=== PATIENT | female | born 1965 | race Caucasian/White ===

== ENCOUNTER 2017-06-05 10:36 | Emergency (ER) | payer OTHER ==
[~2017-06-05] VITALS: Ht 167.6 cm; Wt 87.5 kg
[~2017-06-05 10:36] MED LIST: AMLO5TAB22 PO; RIVA15 PO; Z.0.BCPILL PO
[2017-06-05 11:29] VITALS: BP 179/98; PULSE 81; RESP 18; TEMP 98.4; O2SAT 99
[2017-06-05] MEDS ORDERED: BENA5TAB PO (11:37)
[2017-06-05] MEDS ORDERED: AMLO5TAB2 PO (11:37)
[2017-06-05] MEDS ORDERED: PRED20 PO (12:40)
[2017-06-05] MEDS ORDERED: FLUO0.013 TOPICAL (12:40)
--- NOTE | 2017-06-05 12:42 | PD ---
HPI . Rash Chief Complaint: Skin Problem Time Seen by Provider: 12:06 Travel History International Travel<30 days: No Contact w/Intl Traveler<30days: No Traveled to known affect area: No History of Present Illness HPI 52-year-old female presents emergency department for evaluation of a macular papular rash that started on the anterior aspect of her neck, left eyelid and right forearm last Sunday. The rash is extremely itchy but not painful. Patient denies any fevers, chills, chest pain, shortness breath, malaise. The patient has no major medical history and doesn't take any daily medication. The patient denies any blurred vision or difficulty seeing or moving her eyes with the rash on her left eyelid. PFSH Past Medical History Hx Anticoagulant Therapy: Yes (XERALTO) Deep Vein Thrombosis: Yes (RIGHT LEG) Hypertension: Yes Immunizations Current: Yes ?: Not Past Surgical History Surgical History: No Previous Surgery Social History Alcohol Use: Yes (soccially) Tobacco Use: No Substance Use: No Allergies-Medications (Allergen,Severity, Reaction): Coded Allergies: No Known Allergies (Unverified , 07/18/15) Reported Meds & Prescriptions Reported Meds & Active Scripts Active Fluocinolone Topical (Fluocinolone Acetonide) 0.01% Cream 1 Applic TOPICAL DAILY 5 Days Prednisone 20 Mg Tab 40 Mg PO DAILY 3 Days Take 40 mg (2 tablets) daily for 5 days Reported Benazepril (Benazepril HCl) 5 Mg Tab 5 Mg PO DAILY Amlodipine (Amlodipine Besylate) 5 Mg Tab 5 Mg PO DAILY Review of Systems Except as stated in HPI: all other systems reviewed are Neg Physical Exam Narrative GENERAL: Well-nourished, well-developed pleasant 52-year-old female patient in no acute distress. Nontoxic appearing. SKIN: Macular papular rash on the anterior aspect of the neck, left eyelid and right forearm. No erythema, purulent drainage or vesicles noted. HEAD: Normocephalic. Atraumatic. EYES: PERRLA demonstrated bilaterally. No scleral icterus. No injection or drainage. NECK: Supple, trachea midline. No JVD or lymphadenopathy. CARDIOVASCULAR: Regular rate and rhythm without murmurs, gallops, or rubs. RESPIRATORY: Breath sounds equal bilaterally. No accessory muscle use. GASTROINTESTINAL: Abdomen soft, non-tender, nondistended. MUSCULOSKELETAL: No cyanosis, or edema. BACK: Nontender without obvious deformity. No CVA tenderness. Data Data Last Documented VS Vital Signs Date Time Temp Pulse Resp B/P (MAP) Pulse Ox O2 Delivery O2 Flow Rate FiO2 06/05/17 11:29 98.4 81 18 179/98 (125) 99 Orders Orders Ed Discharge Order (06/05/17 12:42) MDM Medical Decision Making Medical Screen Exam Complete: Yes Emergency Medical Condition: Yes Differential Diagnosis Differential diagnoses include but not limited to contact dermatitis, psoriasis , scabies, atopic dermatitis Narrative Course 52-year-old female presents to the emergency department for evaluation of a maculopapular rash that started last Sunday on the anterior aspect of her neck , left eyelid and right forearm. Patient denies any systemic symptoms such as fever, chills, malaise, abdominal pain, nausea, vomiting or lightheadedness. Patient describes the rash as incredibly itchy but not painful. Patient denies any major medical history. Patient denies any change of lotions, soaps, detergents. Patient will be given a short dose steroid by mouth and topical steroid cream to treat the rash. The by mouth steroid is primarily due to the left eyelid rash. Patient denies any blurred vision or difficulty seeing. Extraocular motions intact. PERRLA demonstrated bilaterally. Patient is thankful for care and understands the plan of care. Patient understands reasons to come back to the emergency room and will be on the lookout for secondary rash due to itching. Patient instructed to take Benadryl at night to help with itching and use cold compresses to help with itching. Patient discharged home with prescriptions. Diagnosis Primary Impression: Acute dermatitis Referrals: Pain Medicine Physician Primary Care Physician Patient Instructions: Dermatitis (ED), General Instructions Additional Instructions: Please return to emergency department if your symptoms return or worsen. Follow up with your primary care provider and/or health information clerk. Take medications as prescribed. Use Benadryl at night to help with itching. May use cold compresses to help with itching Med/Other Pt SpecificInfo: Prescription(s) given Scripts Fluocinolone Topical (Fluocinolone Topical) 0.01% Cream 1 APPLIC TOPICAL DAILY for 5 Days, #15 GM 0 Refills Prov: Regina Sanabria 06/05/17 Prednisone (Prednisone) 20 Mg Tab 40 MG PO DAILY for 3 Days, #6 TAB 0 Refills Take 40 mg (2 tablets) daily for 5 days Prov: Regina Sanabria 06/05/17 Disposition: 01 DISCHARGE HOME Condition: Stable Regina Sanabria Jun 05, 2017 12:42
== END 2017-06-05 12:50 | disposition home or self-care (01) ==
LOC: PHEFT 10:36
DX: L30.9 Dermatitis, unspecified (principal)
CPT/HCPCS: 99283

== ENCOUNTER 2017-07-05 12:31 | Emergency (ER) | payer OTHER ==
[~2017-07-05] VITALS: Ht 167.6 cm; Wt 87.7 kg
[~2017-07-05 12:31] MED LIST changes: +AMLO5TAB2 PO; -AMLO5TAB22 PO; +BENA5TAB PO; +FLUO0.013 TOPICAL; +PRED20 PO; -RIVA15 PO; -Z.0.BCPILL PO
[2017-07-05 12:36] VITALS: BP_SYST 227; BP_SYST 230; BP_DIAS 109; BP_DIAS 115; PULSE 104; RESP 16; TEMP 97.7; O2SAT 100
--- NOTE | 2017-07-05 13:02 | PD ---
HPI Chief Complaint: Square Cutter Problem/Complaint Time Seen by Provider: 12:44 Travel History International Travel<30 days: No Contact w/Intl Traveler<30days: No Traveled to known affect area: No History of Present Illness HPI PATIENT COMPLAINTS OF RASH TO BREAST FOLDS, UNDER HER BREAST, TO HER GROIN AREA THAT IS ITCHY. HAS A PCP BUT HAS NOT SEEN HER ABOUT THIS ISSUE DESPITE THE FACT THAT IT HAS BEEN GOING ON AND OFF FOR ABOUT A MONTH. PCP DR THURMAN [facility] Past Medical History Hx Anticoagulant Therapy: Yes (XERALTO) Cardiovascular Problems: Yes (htn on meds but didnt take b/p meds today at night) Deep Vein Thrombosis: Yes (RIGHT LEG) Hypertension: Yes Immunizations Current: Yes ?: Not LMP: menapause Social History Alcohol Use: Yes (soccially) Tobacco Use: No Substance Use: No Allergies-Medications (Allergen,Severity, Reaction): Coded Allergies: No Known Allergies (Unverified Adverse Reaction, Unknown, 07/05/17) Reported Meds & Prescriptions Reported Meds & Active Scripts Active Reported Benazepril (Benazepril HCl) 5 Mg Tab 5 Mg PO DAILY Amlodipine (Amlodipine Besylate) 5 Mg Tab 5 Mg PO DAILY Review of Systems Except as stated in HPI: all other systems reviewed are Neg General / Constitutional: No: Fever Eyes: No: Visual changes HENT: No: Headaches Cardiovascular: No: Chest Pain or Discomfort Respiratory: No: Shortness of Breath Gastrointestinal: No: Abdominal Pain Genitourinary: No: Dysuria Musculoskeletal: No: Pain Skin: Positive Rash, Positive Itching Neurologic: No: Weakness Psychiatric: No: Depression Endocrine: No: Polydipsia Hematologic/Lymphatic: No: Easy Bruising Physical Exam Narrative GENERAL: SKIN: Warm and dry....MACULAR RASH AT ANTECUBITAL FOLDS, UNDER BREAST FOLDS, TO HER EXTERNAL FOLDS OF VULVA, NOTED EXCORIATIONS, NO CELLULITIC CHANGES. HEAD: Atraumatic. Normocephalic. EYES: Pupils equal and round. No scleral icterus. No injection or drainage. ENT: No nasal bleeding or discharge. Mucous membranes pink and moist. NECK: Trachea midline. No JVD. CARDIOVASCULAR: Regular rate and rhythm. RESPIRATORY: No accessory muscle use. Clear to auscultation. Breath sounds equal bilaterally. GASTROINTESTINAL: Abdomen soft, non-tender, nondistended. Hepatic and splenic margins not palpable. MUSCULOSKELETAL: Extremities without clubbing, cyanosis, or edema. No obvious deformities. NEUROLOGICAL: Awake and alert. No obvious cranial nerve deficits. Motor grossly within normal limits. Five out of 5 muscle strength in the arms and legs. Normal speech. PSYCHIATRIC: Appropriate mood and affect; insight and judgment normal. Data Data Last Documented VS Vital Signs Date Time Temp Pulse Resp B/P (MAP) Pulse Ox O2 Delivery O2 Flow Rate FiO2 07/05/17 12:36 97.7 104 16 230/115 (153) 100 227/109 (148) Orders Orders Diphenhydramine Inj (Benadryl Inj) (07/05/17 13:15) Fluconazole (Diflucan) (07/05/17 13:15) Famotidine (Pepcid) (07/05/17 13:15) MDM Medical Decision Making Medical Screen Exam Complete: Yes Emergency Medical Condition: Yes Medical Record Reviewed: Yes Differential Diagnosis ATOPIC DERMATITIS V PSORIASIS V FUNGAL INFECTION V CELLULITIS V LYMPHANGITIS Narrative Course AFTER EVALUATION NOTED TO HAVE YEAST INFECTION OF SKIN Diagnosis Primary Impression: CANDIDIASIS Patient Instructions: General Instructions, Skin Yeast Infection (ED) Additional Instructions: PLEASE SEE DR THURMAN FOR REFERRAL TO [facility] SPECIALLY IF THIS TREATMENT DOES NOT HELP YOU. Scripts Nystatin-Triamcinolone (Nystatin-Triamcinolone) 100,000-0.1 Unit/Gm Cream 1 APPLIC TOPICAL BID for Infection, #60 GM 2 Refills Prov: Ulises Bhakta MD 07/05/17 Disposition: 01 DISCHARGE HOME Condition: Stable Ulises Bhakta MD Jul 05, 2017 13:02
[2017-07-05] MEDS ORDERED: NYSTCRE29 TOPICAL (13:05)
[2017-07-05 13:15] VITALS: BP 214/126
[2017-07-05] MEDS ORDERED: FLUCONAZOLE 100 MG TAB PO ONE (13:15)
[2017-07-05] MEDS ORDERED: FAMOTIDINE 20 MG TAB PO ONE (13:15)
[2017-07-05] MEDS ORDERED: diphenhydrAMINE HCL 50 MG/ML VIAL IM ONE (13:15)
[2017-07-05] MEDS ORDERED: cloNIDine HCL 0.1 MG TAB PO ONE (13:30)
[2017-07-05 13:49] VITALS: BP 185/97
== END 2017-07-05 13:51 | disposition home or self-care (01) ==
LOC: PHED 12:31
DX: B37.9 Candidiasis, unspecified (principal)
CPT/HCPCS: 96372; 99284; J1200

== ENCOUNTER 2017-11-04 12:54 | Emergency (ER) | payer OTHER ==
[~2017-11-04] VITALS: Ht 167.6 cm; Wt 82.0 kg
[~2017-11-04 12:54] MED LIST changes: -FLUO0.013 TOPICAL; +NYSTCRE29 TOPICAL; -PRED20 PO
[2017-11-04 13:00] VITALS: BP 143/84; PULSE 84; RESP 16; TEMP 98.1; O2SAT 100
[2017-11-04] MEDS ORDERED: HYDR12.57 PO (15:42)
[2017-11-04] MEDS ORDERED: DIPH25CA PO (15:54)
[2017-11-04] MEDS ORDERED: PRED20 PO (15:54)
--- NOTE | 2017-11-04 15:55 | PD ---
HPI Chief Complaint: Skin Problem Time Seen by Provider: 15:19 Travel History International Travel<30 days: No Contact w/Intl Traveler<30days: No Traveled to known affect area: No History of Present Illness HPI This is a 52-year-old female here with a dry and pruritic rash to both ears 4 days. No fever chills. No pain at the site of the rash. Symptom severity is moderate. No aggravating or alleviating factors. Denies ear pain or drainage. PFSH Past Medical History Hx Anticoagulant Therapy: Yes (XERALTO) Cardiovascular Problems: Yes (htn on meds but didnt take b/p meds today at night) Deep Vein Thrombosis: Yes (RIGHT LEG) Hypertension: Yes Immunizations Current: Yes Social History Alcohol Use: Yes (OCCASIONALLY) Tobacco Use: No (NEVER) Substance Use: No Allergies-Medications (Allergen,Severity, Reaction): Coded Allergies: No Known Allergies (Unverified Adverse Reaction, Unknown, 11/04/17) Reported Meds & Prescriptions Reported Meds & Active Scripts Active Diphenhydramine (Diphenhydramine HCl) 25 Mg Cap 25 Mg PO Q6H PRN Prednisone 20 Mg Tab 40 Mg PO DAILY Take 40 mg (2 tablets) daily for 5 days Reported Hydrochlorothiazide 12.5 Mg Cap 12.5 Mg PO DAILY Benazepril (Benazepril HCl) 5 Mg Tab 40 Mg PO DAILY Amlodipine (Amlodipine Besylate) 5 Mg Tab 5 Mg PO DAILY Review of Systems Except as stated in HPI: all other systems reviewed are Neg Physical Exam Narrative GENERAL: Alert well-appearing 52-year-old female SKIN: Warm and dry. Eczema rash to both ears HEAD: Normocephalic. EARS:Dry, erythematous, scaling skin to both external ears consistent with eczema. No evidence of secondary infection. No canal swelling or exudate. No TM erythema. EYES: No scleral icterus. No injection or drainage. NECK: Supple, trachea midline. No lymphadenopathy. CARDIOVASCULAR: Regular rate and rhythm RESPIRATORY: Breath sounds equal bilaterally. No accessory muscle use. Data Data Last Documented VS Vital Signs Date Time Temp Pulse Resp B/P (MAP) Pulse Ox O2 Delivery O2 Flow Rate FiO2 11/04/17 13:00 98.1 84 16 143/84 (103) 100 Orders Orders Ed Discharge Order (11/04/17 15:55) MDM Medical Decision Making Medical Screen Exam Complete: Yes Emergency Medical Condition: Yes Differential Diagnosis Eczema, contact dermatitis, cellulitis Narrative Course 52-year-old female here with an eczema rash to both ears. No evidence of secondary infection. She'll be treated with steroids, Benadryl, Eucerin cream. Diagnosis Primary Impression: Eczema Qualified Codes: L30.9 - Dermatitis, unspecified Referrals: Primary Care Physician Additional Instructions: EUCERIN CREAM to the area Medication as directed Scripts Diphenhydramine (Diphenhydramine) 25 Mg Cap 25 MG PO Q6H Y for ALLERGIES, #20 CAP 0 Refills Prov: Angeles Fan 11/04/17 Prednisone (Prednisone) 20 Mg Tab 40 MG PO DAILY, #10 TAB 0 Refills Take 40 mg (2 tablets) daily for 5 days Prov: Angeles Fan 11/04/17 Disposition: 01 DISCHARGE HOME Condition: Stable Angeles Fan Nov 04, 2017 15:55
== END 2017-11-04 16:14 | disposition home or self-care (01) ==
LOC: PHED 12:54 → PHEFT 16:14
DX: L30.9 Dermatitis, unspecified (principal); I10 Essential (primary) hypertension; Z86.718 Personal history of other venous thrombosis and embolism; Z79.899 Other long term (current) drug therapy
CPT/HCPCS: 99283

== ENCOUNTER 2018-01-21 10:55 | Observation (INO) | payer OTHER ==
[2018-01-21] VITALS (8 sets, daily range): BP systolic 133–155; BP diastolic 75–93; PULSE 63–99; RESP 16–20; TEMP 98.1–98.3; O2SAT 95–100
[~2018-01-21 10:55] MED LIST changes: +DIPH25CA PO; +HYDR12.57 PO; -NYSTCRE29 TOPICAL; +PRED20 PO
--- NOTE | 2018-01-21 11:23 | PD ---
HPI Chief Complaint: Chest Pain Time Seen by Provider: 11:09 Travel History International Travel<30 days: No Contact w/Intl Traveler<30days: No Traveled to known affect area: No History of Present Illness HPI This 52-year-old female says she had to chest discomfort this morning around 930. She had a heaviness across her chest that lasted for about half an hour. Says she did did not have diaphoresis. She was short of breath at the time. She had just gone up some stairs to get to work when this started. It went away after she rested. She did notice a lump in her throat. Pain is moderate in intensity. She does not have diabetes. She has a history of hypertension on meds. She is not aware of family history of heart disease. He does smoke. She has had an itchy rash on her arms and both axilla since this morning. She has had this rash recurrently. She has been in the ER for it on several occasions. She says the rash does seem to get better with oral steroids. She has never had any heart trouble. About a year ago she had a fractured leg that was in a cast for several months and she developed a DVT. She has had intermittent swelling and discomfort in the leg since PFSH Past Medical History Hx Anticoagulant Therapy: Yes (XERALTO) Cardiovascular Problems: Yes Deep Vein Thrombosis: Yes (RIGHT LEG) Hypertension: Yes Immunizations Current: Yes ?: Not Social History Alcohol Use: Yes (OCCASIONALLY) Tobacco Use: No (NEVER) Substance Use: No Allergies-Medications (Allergen,Severity, Reaction): Coded Allergies: No Known Allergies (Unverified Adverse Reaction, Unknown, 01/21/18) Reported Meds & Prescriptions Reported Meds & Active Scripts Active Reported Hydrochlorothiazide 12.5 Mg Cap 12.5 Mg PO DAILY Benazepril (Benazepril HCl) 5 Mg Tab 40 Mg PO DAILY Amlodipine (Amlodipine Besylate) 5 Mg Tab 5 Mg PO DAILY Review of Systems General / Constitutional: No: Fever, Chills Eyes: No: Diploplia, Blurred Vision HENT: No: Headaches, Vertigo Cardiovascular: Positive: Chest Pain or Discomfort Respiratory: No: Cough, Shortness of Breath Gastrointestinal: No: Nausea, Vomiting Genitourinary: No: Urgency, Frequency Skin: Positive Rash, Positive Itching Neurologic: No: Weakness, Dizziness Psychiatric: No: Anxiety Endocrine: No: Heat Intolerance, Cold Intolerance Hematologic/Lymphatic: No: Easy Bruising Physical Exam Narrative GENERAL: Well-developed female SKIN: Focused skin assessment warm/dry. There is a fine papular rash involving the ulnar surfaces of both forearms and the breast folds bilaterally HEAD: Atraumatic. Normocephalic. EYES: Pupils equal and round. No scleral icterus. No injection or drainage. ENT: No nasal bleeding or discharge. Mucous membranes pink and moist. NECK: Trachea midline. No JVD. CARDIOVASCULAR: Regular rate and rhythm. No murmur appreciated. There is no chest wall tenderness RESPIRATORY: No accessory muscle use. Clear to auscultation. Breath sounds equal bilaterally. GASTROINTESTINAL: Abdomen soft, non-tender, nondistended. Hepatic and splenic margins not palpable. MUSCULOSKELETAL: No obvious deformities. No clubbing. No cyanosis. No edema. NEUROLOGICAL: Awake and alert. No obvious cranial nerve deficits. Motor grossly within normal limits. Normal speech. PSYCHIATRIC: Appropriate mood and affect; insight and judgment normal. Data Data Last Documented VS Vital Signs Date Time Temp Pulse Resp B/P (MAP) Pulse Ox O2 Delivery O2 Flow Rate FiO2 01/21/18 12:45 79 16 155/87 (109) 100 Room Air 01/21/18 11:03 98.3 Orders Orders Complete Blood Count With Diff (01/21/18 11:18) Basic Metabolic Panel (Bmp) (01/21/18 11:18) Troponin I (01/21/18 11:18) Chest, Single Ap (01/21/18 11:18) Aspirin (Aspirin) (01/21/18 11:30) Us Leg Venous Doppler (01/21/18 12:12) Place In Observation (01/21/18 13:17) Activity Bed Rest With Brp (01/21/18 13:17) Vital Signs (Adult) Q4H (01/21/18 13:17) Cardiac Rhythm .As Directed (01/21/18 13:17) Notify Dr: Other .PRN (01/21/18 13:17) Notify Parameters (01/21/18 13:17) Resp Oxygen Nasal Cannula (01/21/18 ) Diet Npo (01/21/18 Lunch) Ckmb (Isoenzyme) Profile (01/21/18 14:30) Ckmb (Isoenzyme) Profile (01/21/18 17:30) Troponin I (01/21/18 14:30) Troponin I (01/21/18 17:30) Electrocardiogram (01/21/18 14:30) Electrocardiogram (01/21/18 17:30) ^ Obtain (01/21/18 13:17) Sodium Chloride 0.9% Flush (Ns Flush) (01/21/18 13:30) Sodium Chloride 0.9% Flush (Ns Flush) (01/21/18 21:00) Morphine Inj (Morphine Inj) (01/21/18 13:30) Ondansetron Inj (Zofran Inj) (01/21/18 13:30) Cushion Spring Assembler / Telemetry ARIE.Q8H (01/21/18 13:17) Admit Order (Ed Use Only) (01/21/18 13:20) Labs Laboratory Tests Test 01/21/18 11:30 White Blood Count 7.8 TH/MM3 Red Blood Count 4.22 MIL/MM3 Hemoglobin 12.9 GM/DL Hematocrit 38.2 % Mean Corpuscular Volume 90.6 FL Mean Corpuscular Hemoglobin 30.6 PG Mean Corpuscular Hemoglobin Concent 33.8 % Red Cell Distribution Width 13.7 % Platelet Count 265 TH/MM3 Mean Platelet Volume 8.1 FL Neutrophils (%) (Auto) 70.7 % Lymphocytes (%) (Auto) 20.1 % Monocytes (%) (Auto) 4.5 % Eosinophils (%) (Auto) 4.0 % Basophils (%) (Auto) 0.7 % Neutrophils # (Auto) 5.4 TH/MM3 Lymphocytes # (Auto) 1.6 TH/MM3 Monocytes # (Auto) 0.4 TH/MM3 Eosinophils # (Auto) 0.3 TH/MM3 Basophils # (Auto) 0.1 TH/MM3 CBC Comment DIFF FINAL Differential Comment Blood Urea Nitrogen 15 MG/DL Creatinine 0.81 MG/DL Random Glucose 105 MG/DL Calcium Level 8.9 MG/DL Sodium Level 140 MEQ/L Potassium Level 3.9 MEQ/L Chloride Level 108 MEQ/L Carbon Dioxide Level 23.7 MEQ/L Anion Gap 8 MEQ/L Estimat Glomerular Filtration Rate 74 ML/MIN Troponin I LESS THAN 0.02 NG/ML MDM Medical Decision Making Medical Screen Exam Complete: Yes Emergency Medical Condition: Yes Medical Record Reviewed: Yes Differential Diagnosis Differential includes coronary artery disease, angina, chest wall pain, anxiety Narrative Course EKG shows normal sinus rhythm. Troponin is less than 0.02. Chest x-ray negative. An ultrasound of the leg was done and is negative for acute DVT. Patient did have chest pain which is possibly of cardiac origin. She will be admitted to the chest pain center for further evaluation Diagnosis Primary Impression: Chest pain Admitting Information Admitting Physician Requests: Observation Jesus Lester MD Jan 21, 2018 11:23
[2018-01-21] MEDS ORDERED: ASPIRIN 325 MG TAB PO ONE (11:30)
[2018-01-21 11:38] LABS: AUTOMATED NEUTROPHIL # 5.4 TH/MM3 (1.8-7.7); BASOPHIL # 0.1 TH/MM3 (0-0.2); BASOPHIL % 0.7 % (0.0-2.0); EOSINOPHIL # 0.3 TH/MM3 (0-0.4); HEMATOCRIT 38.2 % (35.0-46.0); HEMOGLOBIN 12.9 GM/DL (11.6-15.3); LYMPH % 20.1 % (9.0-44.0); LYMPHOCYTE # 1.6 TH/MM3 (1.0-4.8); MEAN CELL VOLUME 90.6 FL (80.0-100.0); MEAN CORPUSCULAR HEMOGLOBIN 30.6 PG (27.0-34.0); MEAN CORPUSCULAR HGB CONC 33.8 % (32.0-36.0); MEAN PLATELET VOLUME 8.1 FL (7.0-11.0); MONO % 4.5 % (0.0-8.0); MONOCYTE # 0.4 TH/MM3 (0-0.9); NEUT % 70.7 % (16.0-70.0); PLATELET COUNT 265 TH/MM3 (150-450); RED BLOOD COUNT 4.22 MIL/MM3 (4.00-5.30); RED CELL DISTRIBUTION WIDTH 13.7 % (11.6-17.2); WHITE BLOOD COUNT 7.8 TH/MM3 (4.0-11.0)
[2018-01-21 11:46] LABS: CHLORIDE 108 MEQ/L (98-107); SODIUM (NA) 140 MEQ/L (136-145)
[2018-01-21 11:51] LABS: BICARBONATE 23.7 MEQ/L (21.0-32.0); CALCIUM 8.9 MG/DL (8.5-10.1); GLUCOSE,RANDOM 105 MG/DL (74-106)
[2018-01-21 11:52] LABS: BLOOD UREA NITROGEN 15 MG/DL (7-18)
[2018-01-21 11:55] LABS: CREATININE 0.81 MG/DL (0.50-1.00); GLOMERULAR FILTRATION RATE 74 ML/MIN (>89)
[2018-01-21 12:00] LABS: TROPONIN I LESS THAN 0.02 NG/ML (0.02-0.05)
--- NOTE | 2018-01-21 12:13 | RADRPT ---
EXAM DATE: 01/21/2018 12:12 PM EDT AGE/SEX: 52 years / Female INDICATIONS: Chest pressure CLINICAL DATA: This is the patient's initial encounter. Patient reports that signs and symptoms have been present for 1 day and indicates a pain score of 0/10. MEDICAL/SURGICAL HISTORY: Hypertension. Deep venous thrombosis. None. COMPARISON: [facility], CHEST SINGLE AP, 02/03/2016. . FINDINGS: A single AP view of the chest demonstrates the lungs to be symmetrically aerated without evidence of mass, infiltrate or effusion. The cardiomediastinal contours are unremarkable. Osseous structures a re intact. CONCLUSION: Negative examination. Electronically signed by: Lalit Jacques MD 01/21/2018 12:12 PM EDT
--- NOTE | 2018-01-21 12:58 | RADRPT ---
EXAM DATE: 01/21/2018 12:48 PM EDT AGE/SEX: 52 years / Female INDICATIONS: Right leg swelling. CLINICAL DATA: This is the patient's initial encounter. Patient reports that signs and symptoms have been present for 1 day and indicates a pain score of 1/10. MEDICAL/SURGICAL HISTORY: Hypertension. Deep venous thrombosis. Cardiac disorders. Anticoagula nt therapy, Xarelto. None. COMPARISON: No prior exams available for comparison. TECHNIQUE: Venous ultrasound of both lower extremities was performed from the inguinal ligament to t he proximal calf. Real-time, color Doppler and spectral tracing, compression and augmentation techni ques were used. FINDINGS: No echogenic clot is seen in the lumen of the common femoral, femoral, popliteal, and posterior tibi al veins. There is partial compressibility of the peroneal vein with blood flow identified within th is vessel may be sequelae of old thrombus. CONCLUSION: 1. No definite evidence for acute DVT. The peroneal vein is not fully compressible, however flow is identified within it may be sequelae of old DVT. Electronically signed by: Oralia Batres MD 01/21/2018 12:57 PM EDT
[2018-01-21] MEDS ORDERED: MORPHINE SULFATE 4 MG/ML INJ IV PUSH PRN (13:30)
[2018-01-21] MEDS ORDERED: SODIUM CHLORIDE 0.9% FLUSH 10 ML FLUSH IV FLUSH PRN (13:30)
[2018-01-21] MEDS ORDERED: ONDANSETRON HCL 4 MG/2 ML VIAL IV PUSH PRN (13:30)
--- NOTE | 2018-01-21 13:58 | EKG ---
Date Performed: 01/21/2018 Time Performed: 11:01:41 PTAGE: 52 years EKG: Sinus rhythm NORMAL ECG No significant change from prior electrocardiogram. PREVIOUS TRACING : 02/03/2016 09.57 DOCTOR: Humphrey Leija Interpretating Date/Time 01/21/2018 13:56:42
--- NOTE | 2018-01-21 15:50 | HHI.HP ---
[facility] Haleigh Szymanski M.D. Admission Diagnosis CHEST PAIN Diagnoses: (1) Chest pain Chief Complaint: Chest pain Travel History International Travel<30 Days: No Contact w/Intl Traveler <30 Da: No Traveled to Known Affected Are: No History of Present Illness Written by Jerome Goldstein, acting as scribe for Dr. Larose on 01/21/18 at 15: 38. 52-year-old female with known history of hypertension who presented to the emergency department due to chest discomfort. Patient states that she was at work and she was walking up the stairs today and she had a sudden onset of a heavy pressure on her chest where she felt like somebody was stepping on her chest. She states that she was lightheaded and developed a lump in her throat. She sat down and after 30 minutes her discomfort resolved on its own. Patient denied any chest pain, nausea, vomiting, shortness of breath, diaphoresis. Patient does have history of hypertension. Does not have a mathematical engineer in the area. She did have a cardiac workup 15 years ago. She does go to her primary medical doctor's office Dr. Szymanski, last time she went there was 6 months ago. Patient had workup done emergency department is recommended patient be observed in chest pain center for further evaluation and management. Review of Systems Constitutional: COMPLAINS OF: Dizziness Cardiovascular: COMPLAINS OF: Chest pain Except as stated in HPI: all other systems reviewed are Neg Past Family Social History Past Medical History Hypertension History of thyroid nodule History of right lower extremity DVT Past Surgical History No previous surgeries Reported Medications Reported Meds & Active Scripts Active Reported Hydrochlorothiazide 12.5 Mg Cap 12.5 Mg PO DAILY Benazepril (Benazepril HCl) 5 Mg Tab 40 Mg PO DAILY Amlodipine (Amlodipine Besylate) 5 Mg Tab 5 Mg PO DAILY Allergies: Coded Allergies: No Known Allergies (Unverified Adverse Reaction, Unknown, 01/21/18) Family History Reviewed and significant for father having diabetes. No family history of heart disease Social History Patient denies any tobacco, alcohol or illicit drug Physical Exam Vital Signs Vital Signs Date Time Temp Pulse Resp B/P (MAP) Pulse Ox O2 Delivery O2 Flow Rate FiO2 01/21/18 14:45 01/21/18 14:25 95 21 01/21/18 13:49 63 20 133/93 (106) 95 01/21/18 12:45 79 16 155/87 (109) 100 Room Air 01/21/18 12:26 99 20 133/75 (94) 95 01/21/18 11:32 75 20 152/91 (111) 99 01/21/18 11:03 98.3 81 20 153/79 (103) Physical Exam GENERAL: This is a well-nourished, well-developed patient, in no apparent distress. HEAD: Atraumatic. Normocephalic. No temporal or scalp tenderness. EYES: Pupils equal round and reactive. Extraocular motions intact. No scleral icterus. No injection or drainage. ENT: Nose without drainage. Airway patent. NECK: Trachea midline. No JVD CARDIOVASCULAR: Regular rate and rhythm without murmurs. RESPIRATORY: Clear to auscultation. Breath sounds equal bilaterally. No wheezes. GASTROINTESTINAL: Abdomen soft, non-tender, nondistended. No guarding. MUSCULOSKELETAL: Extremities without edema. No calf tenderness. Negative Homans sign bilaterally. NEUROLOGICAL: Awake and alert. Cranial nerves II through XII intact. Motor and sensory grossly within normal limits. Normal speech. Laboratory Laboratory Tests Test 01/21/18 11:30 01/21/18 14:25 White Blood Count 7.8 Red Blood Count 4.22 Hemoglobin 12.9 Hematocrit 38.2 Mean Corpuscular Volume 90.6 Mean Corpuscular Hemoglobin 30.6 Mean Corpuscular Hemoglobin Concent 33.8 Red Cell Distribution Width 13.7 Platelet Count 265 Mean Platelet Volume 8.1 Neutrophils (%) (Auto) 70.7 Lymphocytes (%) (Auto) 20.1 Monocytes (%) (Auto) 4.5 Eosinophils (%) (Auto) 4.0 Basophils (%) (Auto) 0.7 Neutrophils # (Auto) 5.4 Lymphocytes # (Auto) 1.6 Monocytes # (Auto) 0.4 Eosinophils # (Auto) 0.3 Basophils # (Auto) 0.1 CBC Comment DIFF FINAL Differential Comment Blood Urea Nitrogen 15 Creatinine 0.81 Random Glucose 105 Calcium Level 8.9 Sodium Level 140 Potassium Level 3.9 Chloride Level 108 Carbon Dioxide Level 23.7 Anion Gap 8 Estimat Glomerular Filtration Rate 74 Troponin I LESS THAN 0.02 Result Diagram: 01/21/18 1130 01/21/18 1130 Imaging Last Impressions Lower Extremity Ultrasound 01/21/18 1212 Signed Impressions: CONCLUSION: 1. No definite evidence for acute DVT. The peroneal vein is not fully compress ible, however flow is identified within it may be sequelae of old DVT. Chest X-Ray 01/21/18 1118 Signed Impressions: CONCLUSION: Negative examination. Caprini VTE Risk Assessment Caprini VTE Risk Assessment: No/Low Risk (score <= 1) Caprini Risk Assessment Model Point Value = 1 Point Value = 2 Point Value = 3 Point Value = 5 Age 41-60 Minor surgery BMI > 25 kg/m2 Swollen legs Varicose veins or History of unexplained or recurrent spontaneous Oral contraceptives or hormone replacement Sepsis (< 1 month) Serious lung disease, including pneumonia (< 1 month) Abnormal pulmonary function Acute myocardial infarction Congestive heart failure (< 1 month) History of inflammatory bowel disease Medical patient at bed rest Age 61-74 Arthroscopic surgery Major open surgery (> 45 min) Laparoscopic surgery (> 45 min) Malignancy Confined to bed (> 72 hours) Immobilizing plaster cast Central venous access Age >= 75 History of VTE Family history of VTE Factor V Leiden Prothrombin [id number] Lupus anticoagulant Anticardiolipin antibodies Elevated serum homocysteine Heparin-induced thrombocytopenia Other congenital or acquired thrombophilia Stroke (< 1 month) Elective arthroplasty Hip, pelvis, or leg fracture Acute spinal cord injury (< 1 month) Prophylaxis Regimen Total Risk Factor Score Risk Level Prophylaxis Regimen 0-1 Low Early ambulation 2 Moderate Order ONE of the following: *Sequential Compression Device (SCD) *Heparin 5000 units SQ BID 3-4 Higher Order ONE of the following medications: *Heparin 5000 units SQ TID *Enoxaparin/Lovenox 40 mg SQ daily (WT < 150 kg, CrCl > 30 mL/min) *Enoxaparin/Lovenox 30 mg SQ daily (WT < 150 kg, CrCl > 10-29 mL/min) *Enoxaparin/Lovenox 30 mg SQ BID (WT < 150 kg, CrCl > 30 mL/min) AND/OR *Sequential Compression Device (SCD) 5 or more Highest Order ONE of the following medications: *Heparin 5000 units SQ TID (Preferred with Epidurals) *Enoxaparin/Lovenox 40 mg SQ daily (WT < 150 kg, CrCl > 30 mL/min) *Enoxaparin/Lovenox 30 mg SQ daily (WT < 150 kg, CrCl > 10-29 mL/min) *Enoxaparin/Lovenox 30 mg SQ BID (WT < 150 kg, CrCl > 30 mL/min) AND *Sequential Compression Device (SCD) Assessment and Plan Assessment and Plan Chest pain -Patient with increased risk factors to include, Age, Hypertension -Patient has been ruled out for acute coronary event with negative serial cardiac enzymes -Serial EKG show normal sinus rhythm without any changes -Exercise stress test was performed and did not indicate any sign of ischemia -Continue ASA Hypertension -Continue home medications DVT prevention -Sequential compression devices This note was transcribed by katina Goldstein. I, Dr. Maci Larose personally performed the history, physical exam, and medical decision making; and confirmed the accuracy of the information in the transcribed note. Authenticated by Dr. Maci Larose on 01/21/18 at 15:38. Discharge disposition Discharge home in stable condition Activity: Ad yanira. Diet: Healthy heart diet Medication per medication reconciliation Follow-up with primary medical doctor in 1 week Jerome Goldstein Jan 21, 2018 15:50 Maci Larose MD Jan 21, 2018 16:50
[2018-01-21 16:33] LABS: TROPONIN I LESS THAN 0.02 NG/ML (0.02-0.05)
--- NOTE | 2018-01-21 17:43 | HHI.DCPOC ---
Discharge Care Plan Diagnosis: (1) Chest pain Goals to Promote Your Health * To prevent worsening of your condition and complications * To maintain your health at the optimal level Directions to Meet Your Goals Take your medications as prescribed Follow your dietary instruction Follow activity as directed Keep your appointments as scheduled Take your immunizations and boosters as scheduled If your symptoms worsen call your PCP, if no PCP go to Urgent Care Center or Emergency Room Smoking is Dangerous to Your Health. Avoid second hand smoke Call the 24-hour hour crisis hotline for domestic abuse at Jerome Goldstein Jan 21, 2018 17:43
--- NOTE | 2018-01-21 19:33 | EKG ---
Date Performed: 01/21/2018 Time Performed: 14:31:55 PTAGE: 52 years EKG: Sinus rhythm NORMAL ECG No significant change from prior electrocardiogram. PREVIOUS TRACING : 01/21/2018 11.01 DOCTOR: Humphrey Leija Interpretating Date/Time 01/21/2018 19:32:53
[2018-01-21] MEDS ORDERED: SODIUM CHLORIDE 0.9% FLUSH 10 ML FLUSH IV FLUSH SCH (21:00)
--- NOTE | 2018-01-22 18:33 | TR ---
Date Performed: 01/21/2018 Time Performed: 17:06:51 DOCTOR: Carla Richard DRUG LIST: CLINICAL HISTORY: CHEST PAIN REASON FOR TEST: Chest pain REASON FOR ENDING: Completed Protocol OBSERVATION: Arrhythmia: None Chest Pain: None CONCLUSION: Patient tolerated KORIN protocol with Total Exercise Time=7:00 Maximum ZV=683 % Max HR Achieved=86.0% Maximum YZ=210/88, Testing stopeed secondary to goals acheived, Patient reached tar get HR. During Peak exercise, patient had quick upsloping ST segments. HR and BP appropriate response to exercise. Recovery period, HR and BP returned to baseline COMMENTS: No ischemia
== END 2018-01-21 19:19 | disposition home or self-care (01) ==
LOC: PHED 10:55 → PHEDA 13:20 → PH3A 15:06
PROVIDERS: ADMIT Hospitalist; ATTEND Hospitalist
DX: R07.89 Other chest pain (principal); I10 Essential (primary) hypertension; R42 Dizziness and giddiness; R21 Rash and other nonspecific skin eruption; F17.200 Nicotine dependence, unspecified, uncomplicated; Z79.899 Other long term (current) drug therapy
CPT/HCPCS: 71045; 80048; 82550; 82552; 84484; 85025; 93005; 93017; 93971; 99285; G0378